=== PATIENT | female | born 1980 | race African-American/Black ===

== ENCOUNTER 2017-05-31 16:03 | Emergency (ER) | payer SELFPAY ==
[~2017-05-31] VITALS: Ht 152.4 cm; Wt 68.0 kg
[2017-05-31 16:08] VITALS: BP 153/93
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
[2017-05-31] MEDS ORDERED: IBUPROFEN 800 MG TABLET. PO ONE (16:30)
[2017-05-31] MEDS ORDERED: CYCL10TA2 PO (17:12)
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
== END 2017-05-31 17:34 | disposition home or self-care (01) ==
LOC: ER 16:03
DX: S40.812A Abrasion of left upper arm, initial encounter (principal); M79.89 Other specified soft tissue disorders; V48.9XXA Unspecified car occupant injured in noncollision transport accident in traffic accident, initial encounter; Y93.89 Activity, other specified; Y92.410 Unspecified street and highway as the place of occurrence of the external cause; Y99.8 Other external cause status
CPT/HCPCS: 73060; 73080; 99284